=== PATIENT | male | born 1930 | race Caucasian/White ===

== ENCOUNTER 2019-10-13 19:28 | Observation (INO) | payer MEDICARE ==
[2019-10-13] MEDS ORDERED: Ondansetron 4 MG/2 ML SDV IVPUSH ONE (20:36)
[2019-10-13] MEDS ORDERED: Sodium Chloride 0.9% 1,000 ML IV SCH ×2 (20:45→23:15)
--- NOTE | 2019-10-13 21:16 | CRLCR ---
Indication: Cough Technique: Chest 1 view Comparison: February 07, 2015 Findings/Impression: Stable cardiomegaly. Normal vasculature. No new focal infiltrate, effusion pneumothorax. Surgical anchors in the left humeral head. Dictated by Hien Chambers MD @ Oct 13 2019 9:13PM Signed by Dr. Hien Chambers @ Oct 13 2019 9:13PM
--- NOTE | 2019-10-13 21:38 | EDM.PDOC ---
ED HPI GENERAL MEDICAL PROBLEM - General Chief Complaint: Gastrointestinal Problem Stated Complaint: VOMITING,DIARRHEA Time Seen by Provider: 10/13/19 20:10 Source of Information: Reports: Patient, Family History Limitations: Reports: No Limitations - History of Present Illness INITIAL COMMENTS - FREE TEXT/NARRATIVE: pt has been ill since thursday. he has been coughing alot and he did go to the clinic today and he was placed on amoxicillin for the chest congestion. He took one and he has vomited all afternoon and had diarrhea. There was no blood in the diarrhea. He did develop some upper abdomanal pain. He has a past history of a idiopathic pancreatitis so he was concerned about that. Onset: Gradual, Other ( started thursday. ) Duration: Hour(s): Location: Reports: Chest, Abdomen, Generalized Associated Symptoms: Reports: Cough, Diaphoresis, Loss of Appetite, Nausea/ Vomiting Generalized Pain Score (Numeric/FACES): 1 - Related Data Allergies Allergy/AdvReac Type Severity Reaction Status Date / Time No Known Allergies Allergy Verified 10/13/19 20:09 Home Meds: Home Meds Aspirin [Halfprin] 81 mg PO DAILY 07/08/13 [History] Halobetasol [Ultravate] 1 applicful TOP ASDIRECTED PRN 07/08/13 [History] Multivitamin with Minerals [Multiple Vitamin] 1 tab PO DAILY 07/08/13 [History] Tamsulosin [Flomax] 0.4 mg PO DAILY 07/08/13 [History] Calcipotriene [Dovonex 0.005% Crm] 1 applicful TOP BID 04/17/14 [History] Glucosamine/Chondr Graham A Sod [Osteo Bi-Flex Caplet] 2 tab PO DAILY 04/18/14 [ History] Folic Acid 1 mg PO DAILY 10/13/19 [History] Methotrexate Sodium [Methotrexate] 2.5 mg PO WEEKLY 10/13/19 [History] Past Medical History HEENT History: Reports: Impaired Vision Other Cardiovascular History: dyslipidemia; valve issue Respiratory History: Reports: Pneumonia, Recurrent, Sleep Apnea Gastrointestinal History: Reports: Colon Polyp Musculoskeletal History: Reports: Arthritis, Back Pain, Chronic Dermatologic History: Reports: Psoriasis - Infectious Disease History Infectious Disease History: Reports: Chicken Pox, Measles, Mumps - Past Surgical History HEENT Surgical History: Reports: Adenoidectomy, Tonsillectomy GI Surgical History: Reports: Colonoscopy, Hernia, Inguinal Social & Family History - Tobacco Use Smoking Status *Q: Former Smoker Used Tobacco, but Quit: Yes Month/Year Tobacco Last Used: quit 40 years ago - Caffeine Use Caffeine Use: Reports: Coffee Caffeine Use Comment: 3-4 cups of coffee per days - Alcohol Use Days Per Week of Alcohol Use: 1 Number of Drinks Per Day: 1 Total Drinks Per Week: 1 - Recreational Drug Use Recreational Drug Use: No ED ROS GENERAL - Review of Systems Review Of Systems: See Below Constitutional: Reports: Malaise, Weakness, Decreased Appetite HEENT: Reports: No Symptoms Respiratory: Reports: Cough Cardiovascular: Reports: No Symptoms Endocrine: Reports: No Symptoms GI/Abdominal: Reports: Diarrhea, Nausea, Vomiting : Reports: No Symptoms Musculoskeletal: Reports: No Symptoms Skin: Reports: No Symptoms Neurological: Reports: No Symptoms ED EXAM, GI/ABD - Physical Exam Exam: See Below Text/Narrative:: pt arrived with a history of a cough since thursday. Today he has been vomitng and having diarrhea.. Pt is chilling. Exam Limited By: Other General Appearance: Alert, Moderate Distress Ears: Normal TMs Nose: Normal Inspection Throat/Mouth: Normal Inspection Head: Atraumatic Neck: Normal Inspection Respiratory/Chest: No Respiratory Distress Cardiovascular: Regular Rate, Rhythm, Tachycardia GI/Abdominal Exam: Soft, Other (mild upper abdomanal tenderness. ) (Male) Exam: Deferred Rectal (Males) Exam: Deferred Back Exam: Normal Inspection Extremities: Normal Inspection Neurological: Alert, Oriented, Normal Cognition Psychiatric: Normal Affect Course - Vital Signs Last Recorded V/S: Last Vital Signs Temp 37.7 C 10/13/19 20:22 Pulse 91 10/13/19 20:29 Resp 16 10/13/19 20:11 BP 120/49 L 10/13/19 20:29 Pulse Ox 92 L 10/13/19 20:29 - Orders/Labs/Meds Orders: Active Orders 24 hr Category Date Time Status UA W/MICROSCOPIC [URIN] Urgent Lab 10/13/19 20:36 Ordered Sodium Chloride 0.9% [Normal Saline] 1,000 ml Med 10/13/19 20:45 Active IV ASDIRECTED Medication Orders Sodium Chloride (Normal Saline) 1,000 mls @ 999 mls/hr IV ASDIRECTED JUJU Last Admin: 10/13/19 20:46 Dose: 999 mls/hr Labs: Laboratory Tests 10/13/19 10/13/19 10/13/19 Range/Units 20:30 20:30 20:30 WBC 4.8 (4.5-11.0) K/uL RBC 3.93 L (4.30-5.90) M/uL Hgb 12.6 (12.0-15.0) g/dL Hct 39.7 L (40.0-54.0) % MCV 101 H (80-98) fL MCH 32 H (27-31) pg MCHC 32 (32-36) % Plt Count 129 L (150-400) K/uL Neut % (Auto) 94 H (36-66) % Lymph % (Auto) 2 L (24-44) % [place] % (Auto) 4 (2-6) % Eos % (Auto) 1 L (2-4) % Baso % (Auto) 0 (0-1) % Sodium 142 (140-148) mmol/L Potassium 4.2 (3.6-5.2) mmol/L Chloride 107 (100-108) mmol/L Carbon Dioxide 24 (21-32) mmol/L Anion Gap 10.6 (5.0-14.0) mmol/L BUN 31 H D (7-18) mg/dL Creatinine 1.1 D (0.8-1.3) mg/dL Est Cr Clr Drug Dosing 41.08 mL/min Estimated GFR (MDRD) > 60 (>60) Glucose 133 H (74-106) mg/dL Lactic Acid (0.4-2.0) mmol/L Calcium 8.2 L (8.5-10.1) mg/dL Total Bilirubin 0.9 (0.2-1.0) mg/dL AST 20 (15-37) U/L ALT 20 (12-78) U/L Alkaline Phosphatase 37 L (46-116) U/L Total Protein 6.5 (6.4-8.2) g/dL Albumin 3.7 (3.4-5.0) g/dL Globulin 2.8 (2.3-3.5) g/dL Albumin/Globulin Ratio 1.3 (1.2-2.2) Amylase 28 (25-115) U/L 10/13/19 Range/Units 20:30 WBC (4.5-11.0) K/uL RBC (4.30-5.90) M/uL Hgb (12.0-15.0) g/dL Hct (40.0-54.0) % MCV (80-98) fL MCH (27-31) pg MCHC (32-36) % Plt Count (150-400) K/uL Neut % (Auto) (36-66) % Lymph % (Auto) (24-44) % [place] % (Auto) (2-6) % Eos % (Auto) (2-4) % Baso % (Auto) (0-1) % Sodium (140-148) mmol/L Potassium (3.6-5.2) mmol/L Chloride (100-108) mmol/L Carbon Dioxide (21-32) mmol/L Anion Gap (5.0-14.0) mmol/L BUN (7-18) mg/dL Creatinine (0.8-1.3) mg/dL Est Cr Clr Drug Dosing mL/min Estimated GFR (MDRD) (>60) Glucose (74-106) mg/dL Lactic Acid 2.0 (0.4-2.0) mmol/L Calcium (8.5-10.1) mg/dL Total Bilirubin (0.2-1.0) mg/dL AST (15-37) U/L ALT (12-78) U/L Alkaline Phosphatase (46-116) U/L Total Protein (6.4-8.2) g/dL Albumin (3.4-5.0) g/dL Globulin (2.3-3.5) g/dL Albumin/Globulin Ratio (1.2-2.2) Amylase (25-115) U/L Meds: Medications Generic Name Dose Route Start Last Admin Trade Name Freq PRN Reason Stop Dose Admin Sodium Chloride 1,000 mls @ 999 mls/hr 10/13/19 20:45 10/13/19 20:46 Normal Saline IV 999 mls/hr ASDIRECTED JUJU Administration Discontinued Medications Generic Name Dose Route Start Last Admin Trade Name Freq PRN Reason Stop Dose Admin Ondansetron HCl 4 mg 10/13/19 20:36 10/13/19 20:46 Zofran IVPUSH 10/13/19 20:37 4 mg ONETIME ONE Administration - Re-Assessments/Exams Free Text/Narrative Re-Assessment/Exam: 10/13/19 21:40 pt had a neg influ a and b Pt had a low wbc looking like a viral illness. His chest xray looked good. Pt is dehydrated. Departure - Departure Time of Disposition: 21:42 Disposition: Admitted As Inpatient 66 Condition: Fair Clinical Impression: Dehydration, Viral illness - Discharge Information Referrals: Bob Nunes MD [Primary Care Provider] - Care Plan Goals: admit to [facility] Sepsis Event Note - Evaluation Sepsis Screening Result: No Definite Risk - Focused Exam Vital Signs: Vital Signs Temp Pulse Resp BP Pulse Ox 10/13/19 20:29 91 120/49 L 92 L 10/13/19 20:22 37.7 C 10/13/19 20:11 109 H 16 115/67 92 L 10/13/19 20:08 109 H 16 115/67 92 L Date Exam was Performed: 10/13/19 Time Exam was Performed: 21:33 - My Orders Last 24 Hours: My Active Orders 10/13/19 20:36 UA W/MICROSCOPIC [URIN] Urgent 10/13/19 20:45 Sodium Chloride 0.9% [Normal Saline] 1,000 ml IV ASDIRECTED - Assessment/Plan Last 24 Hours: My Active Orders 10/13/19 20:36 UA W/MICROSCOPIC [URIN] Urgent 10/13/19 20:45 Sodium Chloride 0.9% [Normal Saline] 1,000 ml IV ASDIRECTED
[2019-10-13] MEDS ORDERED: cefTRIAXone 1 GM in Sodium Chloride 0.9% 50 ML IV SCH (23:00)
[2019-10-13] MEDS ORDERED: Ondansetron 4 MG Tab.DIS PO PRN (23:36)
[2019-10-13] MEDS ORDERED: Pantoprazole 40 MG Vial IV SCH (23:36)
[2019-10-13] MEDS ORDERED: Albuterol 0.083% 2.5 MG/3 ML Neb Soln NEB PRN (23:36)
[2019-10-13] MEDS ORDERED: Docusate Sodium 100 MG Cap PO PRN (23:36)
[2019-10-13] MEDS ORDERED: Albuterol/Ipratropium 3.0-0.5 MG/3 ML Neb Soln NEB PRN (23:36)
[2019-10-13] MEDS ORDERED: oxyCODONE 5 MG Tab PO PRN (23:36)
[2019-10-13] MEDS ORDERED: Acetaminophen 325 MG Tab PO PRN (23:36)
[2019-10-13] MEDS ORDERED: Ondansetron 4 MG/2 ML SDV IV PRN (23:36)
--- NOTE | 2019-10-14 00:36 | PCM.HP.2 ---
H&P History of Present Illness - General Date of Service: 10/13/19 Admit Problem/Dx: Admission Diagnosis/Problem Admission Diagnosis/Problem Dehydration Source of Information: Patient, Family (Two Daughters at bedside), Provider, RN History Limitations: Reports: No Limitations - History of Present Illness Initial Comments - Free Text/Narative: Source of Information: Reports: Patient, Family History Limitations: Reports: No Limitations - History of Present Illness INITIAL COMMENTS - FREE TEXT/NARRATIVE: Family reports Mr. Cook has been ill since Thursday. He has been coughing a lot and he did go to the clinic today and he was placed on amoxicillin for the chest congestion. He took one and he has vomited all afternoon and had diarrhea. There was no blood in the diarrhea. He did develop some upper abdominal pain. He has a past history of a idiopathic pancreatitis so he was concerned about that. Onset: Gradual, Other ( started Thursday. ) Duration: Hour(s): Location: Reports: Chest, Abdomen, Generalized Associated Symptoms: Reports: Cough, Diaphoresis, Loss of Appetite, Nausea/ Vomiting Onset of Symptoms: Reports: Gradual Symptom Onset Date: 10/11/19 Duration of Symptoms: Reports: Day(s):, Getting Worse Location: Reports: Chest (respiratory illness since Thursday.), Generalized Severity: Moderate Improves with: Reports: None Worsens with: Reports: None Context: Reports: Other (illness x 3 days. fever, chills, nausea, vomiting, diarrhea.) Associated Symptoms: Reports: Cough, Fever/Chills, Loss of Appetite, Nausea/ Vomiting (vomiting til had dry heaves for two hours.), Weakness Generalized Pain Score (Numeric/FACES): 1 - Related Data Allergies/Adverse Reactions: Allergies Allergy/AdvReac Type Severity Reaction Status Date / Time No Known Allergies Allergy Verified 10/13/19 20:09 Home Medications: Home Meds Aspirin [Halfprin] 81 mg PO ASDIRECTED 07/08/13 [History] Halobetasol [Ultravate] 1 applicful TOP ASDIRECTED PRN 07/08/13 [History] Multivitamin with Minerals [Multiple Vitamin] 1 tab PO DAILY 07/08/13 [History] Tamsulosin [Flomax] 0.4 mg PO DAILY 07/08/13 [History] Calcipotriene [Dovonex 0.005% Crm] 1 applicful TOP BID 04/17/14 [History] Glucosamine/Chondr Graham A Sod [Osteo Bi-Flex Caplet] 2 tab PO DAILY 04/18/14 [ History] Folic Acid 1 mg PO DAILY 10/13/19 [History] Furosemide 20 mg PO DAILY 10/13/19 [History] Losartan Potassium 12.5 mg PO DAILY 10/13/19 [History] Methotrexate Sodium [Methotrexate] 2.5 mg PO WEEKLY 10/13/19 [History] atorvaSTATin [Lipitor] 5 mg PO BEDTIME 10/13/19 [History] Amoxicillin 500 mg PO BID 10/14/19 [History] Past Medical History HEENT History: Reports: Impaired Vision Cardiovascular History: Reports: Other (See Below) (valve heart disease) Other Cardiovascular History: dyslipidemia; valve issue Respiratory History: Reports: Pneumonia, Recurrent, Sleep Apnea Gastrointestinal History: Reports: Colon Polyp Musculoskeletal History: Reports: Arthritis, Back Pain, Chronic Dermatologic History: Reports: Psoriasis - Infectious Disease History Infectious Disease History: Reports: Chicken Pox, Measles, Mumps - Past Surgical History HEENT Surgical History: Reports: Adenoidectomy, Tonsillectomy GI Surgical History: Reports: Colonoscopy, Hernia, Inguinal Social & Family History - Tobacco Use Smoking Status *Q: Former Smoker Used Tobacco, but Quit: Yes Month/Year Tobacco Last Used: quit 40 years ago - Caffeine Use Caffeine Use: Reports: Coffee Caffeine Use Comment: 3-4 cups of coffee per days - Alcohol Use Days Per Week of Alcohol Use: 1 Number of Drinks Per Day: 1 Total Drinks Per Week: 1 - Recreational Drug Use Recreational Drug Use: No - Living Situation & Occupation Living situation: Reports: , Alone Occupation: Retired (lives in apartment in [place], [place]. He is independent, drives himself and is control of his life. He has two Daughters that live in [facility] who keep close watch on Jovan.) H&P Review of Systems - Review of Systems: Review Of Systems: See Below General: Reports: Fever, Chills, Malaise, Weakness, Fatigue, Decreased Appetite HEENT: Reports: Glasses Pulmonary: Reports: Shortness of Breath, Cough, Sputum (yellow phlem) Cardiovascular: Reports: Palpitations, Other (15 years ago - vein stripping.) Gastrointestinal: Reports: Diarrhea, Decreased Appetite, Nausea, Vomiting ( reports two hours of dry heaves today - which brought him to the ER.), Other ( 15 years ago colon resection for polyps.) Genitourinary: Reports: No Symptoms Musculoskeletal: Reports: Other (hx of left rotator cuff repair, knee replacement, arthritis in hips, generalized arthritis.) Skin: Reports: Other (psoriasis) Psychiatric: Reports: No Symptoms Neurological: Reports: No Symptoms Hematologic/Lymphatic: Reports: No Symptoms Exam - Exam Exam: See Below - Vital Signs Vital Signs: Last Vital Signs Temp 37.5 C 10/13/19 21:50 Pulse 110 H 10/13/19 21:30 Resp 16 10/13/19 20:11 BP 90/57 L 10/13/19 21:30 Pulse Ox 94 L 10/13/19 21:30 Weight: 81.828 kg - Exam Quality Assessment: DVT Prophylaxis General: Alert, Oriented, Cooperative HEENT: PERRLA, Conjunctiva Clear, EACs Clear, EOMI, Mucosa Moist & [place], Nares Patent Neck: Supple, Trachea Midline Lungs: Clear to Auscultation, Normal Respiratory Effort Cardiovascular: Irregular Rhythm, Tachycardia, Other (murmur present) GI/Abdominal Exam: Normal Bowel Sounds, Soft, Non-Tender, No Organomegaly, No Distention, No Abnormal Bruit, No Mass, Pelvis Stable (Male) Exam: Deferred Rectal (Males) Exam: Deferred Back Exam: Normal Inspection, Full Range of Motion Extremities: Normal Inspection, Normal Range of Motion, Non-Tender, No Pedal Edema, Normal Capillary Refill Skin: Warm, Dry, Intact Neurological: Reflexes Equal Bilateral, Strength Equal Bilateral Neuro Extensive - Mental Status: Alert, Oriented x3, Normal Mood/Affect, Normal Cognition Psychiatric: Alert, Normal Affect, Normal Mood - Patient Data Lab Results Last 24 hrs: Laboratory Results - last 24 hr 10/13/19 10/13/19 10/13/19 Range/Units 20:30 20:30 20:30 WBC 4.8 (4.5-11.0) K/uL RBC 3.93 L (4.30-5.90) M/uL Hgb 12.6 (12.0-15.0) g/dL Hct 39.7 L (40.0-54.0) % MCV 101 H (80-98) fL MCH 32 H (27-31) pg MCHC 32 (32-36) % Plt Count 129 L (150-400) K/uL Neut % (Auto) 94 H (36-66) % Lymph % (Auto) 2 L (24-44) % [place] % (Auto) 4 (2-6) % Eos % (Auto) 1 L (2-4) % Baso % (Auto) 0 (0-1) % Sodium 142 (140-148) mmol/L Potassium 4.2 (3.6-5.2) mmol/L Chloride 107 (100-108) mmol/L Carbon Dioxide 24 (21-32) mmol/L Anion Gap 10.6 (5.0-14.0) mmol/L BUN 31 H D (7-18) mg/dL Creatinine 1.1 D (0.8-1.3) mg/dL Est Cr Clr Drug Dosing 41.08 mL/min Estimated GFR (MDRD) > 60 (>60) Glucose 133 H (74-106) mg/dL Lactic Acid (0.4-2.0) mmol/L Calcium 8.2 L (8.5-10.1) mg/dL Total Bilirubin 0.9 (0.2-1.0) mg/dL AST 20 (15-37) U/L ALT 20 (12-78) U/L Alkaline Phosphatase 37 L (46-116) U/L Total Protein 6.5 (6.4-8.2) g/dL Albumin 3.7 (3.4-5.0) g/dL Globulin 2.8 (2.3-3.5) g/dL Albumin/Globulin Ratio 1.3 (1.2-2.2) Amylase 28 (25-115) U/L 10/13/19 Range/Units 20:30 WBC (4.5-11.0) K/uL RBC (4.30-5.90) M/uL Hgb (12.0-15.0) g/dL Hct (40.0-54.0) % MCV (80-98) fL MCH (27-31) pg MCHC (32-36) % Plt Count (150-400) K/uL Neut % (Auto) (36-66) % Lymph % (Auto) (24-44) % [place] % (Auto) (2-6) % Eos % (Auto) (2-4) % Baso % (Auto) (0-1) % Sodium (140-148) mmol/L Potassium (3.6-5.2) mmol/L Chloride (100-108) mmol/L Carbon Dioxide (21-32) mmol/L Anion Gap (5.0-14.0) mmol/L BUN (7-18) mg/dL Creatinine (0.8-1.3) mg/dL Est Cr Clr Drug Dosing mL/min Estimated GFR (MDRD) (>60) Glucose (74-106) mg/dL Lactic Acid 2.0 (0.4-2.0) mmol/L Calcium (8.5-10.1) mg/dL Total Bilirubin (0.2-1.0) mg/dL AST (15-37) U/L ALT (12-78) U/L Alkaline Phosphatase (46-116) U/L Total Protein (6.4-8.2) g/dL Albumin (3.4-5.0) g/dL Globulin (2.3-3.5) g/dL Albumin/Globulin Ratio (1.2-2.2) Amylase (25-115) U/L Result Diagrams: 10/13/19 20:30 10/13/19 20:30 Krzysztof Results Last 24 hrs: Microbiology 10/13/19 20:27 Influenza Type A Antigen Screen - Final Nasal Aspirate, Left NEGATIVE INFLUENZA A VIRUS AG REFERENCE RANGE: NEGATIVE Influenza Type B Antigen Screen - Final NEGATIVE INFLUENZA B VIRUS AG REFERENCE RANGE: NEGATIVE Sepsis Event Note - Evaluation Sepsis Screening Result: No Definite Risk - Focused Exam Vital Signs: Vital Signs Temp Pulse Resp BP Pulse Ox 10/13/19 21:50 37.5 C 10/13/19 21:30 110 H 90/57 L 94 L 10/13/19 20:59 89 107/55 L 92 L 10/13/19 20:29 91 120/49 L 92 L 10/13/19 20:22 37.7 C 10/13/19 20:11 109 H 16 115/67 92 L 10/13/19 20:08 109 H 16 115/67 92 L Date Exam was Performed: 10/14/19 Time Exam was Performed: 01:31 - Problem List (1) Dehydration SNOMED Code(s): 72624712 ICD Code: E86.0 - DEHYDRATION Status: Acute Priority: High Current Visit: Yes (2) Upper respiratory infection SNOMED Code(s): 83935378 ICD Code: J06.9 - ACUTE UPPER RESPIRATORY INFECTION, UNSPECIFIED Status: Acute Priority: High Current Visit: Yes Qualifiers: Airway obstruction: without obstruction (3) Irregular heart beats SNOMED Code(s): 412257480 ICD Code: I49.9 - CARDIAC ARRHYTHMIA, UNSPECIFIED Status: Acute Priority : High Current Visit: Yes Problem List Initiated/Reviewed/Updated: Yes Orders Last 24hrs: Active Orders 24 hr Category Date Time Status Cardiac Monitoring [RC] .As Directed Care 10/13/19 23:03 Active Intake and Output [RC] QSHIFT Care 10/13/19 23:36 Active Notify Provider Vital Signs [RC] ASDIRECTED Care 10/13/19 23:36 Active Oxygen Therapy [RC] PRN Care 10/13/19 23:36 Active Pulse Oximetry [RC] CONTINUOUS Care 10/13/19 23:36 Active RT Aerosol Therapy [RC] ASDIRECTED Care 10/13/19 23:36 Active Up ad [place] [RC] ASDIRECTED Care 10/13/19 23:36 Active VTE/DVT Education [RC] Per Unit Routine Care 10/13/19 23:36 Active Vital Signs [RC] Q4H Care 10/13/19 23:36 Active Consult to Spiritual Care [CONS] Routine Cons 10/13/19 23:36 Active Regular Diet [DIET] Diet 10/13/19 Breakfast Active BASIC METABOLIC PANEL,BMP [CHEM] AM Lab 10/14/19 05:11 Ordered CBC WITH AUTO DIFF [HEME] AM Lab 10/14/19 05:11 Ordered LACTIC ACID [CHEM] Routine Lab 10/14/19 01:10 Ordered UA W/MICROSCOPIC [URIN] Urgent Lab 10/13/19 20:36 Ordered Acetaminophen [Tylenol] Med 10/13/19 23:36 Active 650 mg PO Q4H PRN Albuterol [Proventil Neb Soln] Med 10/13/19 23:36 Active 2.5 mg NEB Q4H PRN Albuterol/Ipratropium [DuoNeb 3.0-0.5 MG/3 ML] Med 10/13/19 23:36 Active 3 ml NEB QID PRN Azithromycin [Zithromax] 500 mg Med 10/14/19 00:00 Active Sodium Chloride 0.9% [Normal Saline] 250 ml IV Q24H Docusate Sodium [Colace] Med 10/13/19 23:36 Active 100 mg PO BID PRN Enoxaparin [Lovenox] Med 10/14/19 09:00 Active 40 mg SUBCUT DAILY Folic Acid Med 10/14/19 09:00 Active 1 mg PO DAILY Furosemide [Lasix] Med 10/14/19 09:00 Active 20 mg PO DAILY Losartan [Cozaar] Med 10/14/19 09:00 Active 12.5 mg PO DAILY Ondansetron [Zofran ODT] Med 10/13/19 23:36 Active 4 mg PO Q6H PRN Ondansetron [Zofran] Med 10/13/19 23:36 Active 4 mg IV Q4H PRN Pantoprazole [ProTONIX IV] Med 10/13/19 23:36 Active 40 mg IV BEDTIME Sodium Chloride 0.9% [Normal Saline] 1,000 ml Med 10/13/19 23:15 Active IV ASDIRECTED Tamsulosin [Flomax] Med 10/14/19 09:00 Active 0.4 mg PO DAILY atorvaSTATin [Lipitor] Med 10/14/19 21:00 Active 5 mg PO BEDTIME cefTRIAXone [Rocephin] 1 gm Med 10/13/19 23:00 Active Sodium Chloride 0.9% [Normal Saline] 50 ml IV Q24H oxyCODONE Med 10/13/19 23:36 Active 5 mg PO Q4H PRN Resuscitation Status Routine Resus Stat 10/13/19 23:13 Ordered EKG 12 Lead [EK] Urgent Ther 10/13/19 23:02 Ordered Medication Orders Acetaminophen (Tylenol) 650 mg PO Q4H PRN PRN Reason: Pain (Mild 1-3)/fever Albuterol (Proventil Neb Soln) 2.5 mg NEB Q4H PRN PRN Reason: Shortness Of Breath/wheezing Albuterol/Ipratropium (Duoneb 3.0-0.5 Mg/3 Ml) 3 ml NEB QID PRN PRN Reason: Shortness Of Breath/wheezing Atorvastatin Calcium (Lipitor) 5 mg PO BEDTIME JUJU Docusate Sodium (Colace) 100 mg PO BID PRN PRN Reason: Constipation Enoxaparin Sodium (Lovenox) 40 mg SUBCUT DAILY JUJU Folic Acid (Folic Acid) 1 mg PO DAILY [facility] Furosemide (Lasix) 20 mg PO DAILY [facility] Sodium Chloride (Normal Saline) 1,000 mls @ 125 mls/hr IV ASDIRECTED [facility] Last Admin: 10/13/19 23:53 Dose: 125 mls/hr Azithromycin 500 mg/ Sodium (Chloride) 250 mls @ 250 mls/hr IV Q24H [facility] Ceftriaxone Sodium 1 gm/ (Sodium Chloride) 50 mls @ 100 mls/hr IV Q24H [facility] Last Admin: 10/14/19 00:31 Dose: 100 mls/hr Losartan Potassium (Cozaar) 12.5 mg PO DAILY [facility] Ondansetron HCl (Zofran Odt) 4 mg PO Q6H PRN PRN Reason: Nausea able to take PO Ondansetron HCl (Zofran) 4 mg IV Q4H PRN PRN Reason: Nausea/Vomiting Oxycodone HCl (Oxycodone) 5 mg PO Q4H PRN PRN Reason: Pain (moderate 4-6) Pantoprazole Sodium (Protonix Iv) 40 mg IV BEDTIME [facility] Tamsulosin HCl (Flomax) 0.4 mg PO DAILY [facility] Assessment/Plan Comment:: ASSESSMENT AND PLAN OF CARE: Dehydration with nausea, vomiting, diarrhea. INITIAL COMMENTS - FREE TEXT/NARRATIVE: Family reports Mr. Cook has been ill since Thursday. He has been coughing a lot and he did go to the clinic today and he was placed on amoxicillin for the chest congestion. He took one and he has vomited all afternoon and had diarrhea. There was no blood in the diarrhea. He did develop some upper abdominal pain. He has a past history of a idiopathic pancreatitis so he was concerned about that. Onset: Gradual, Other ( started Thursday. ) ER work-up labs normal, lactic acid at 2.0 will plan to repeat in 4 hours. chest x-ray no acute changes per radiology report. will plan to admit to hospital for further care and treatment. Daughters and Mr. Cook agree with plan of care. Dehydration with nausea, vomiting and diarrhea since Thursday (3 days ago) -IV fluids for hydration - give one liter in ER prior to transfer to 2nd floor- IV Normal Saline 125ml/hr -Medication for nausea and vomiting -Protonix 40 mg IV every 24 hours -am labs: cbc, bmp Respiratory illness -IV Rocephin 1 gram every 24 hours -IV Zithromax 500 mg every 24 hours -Nebulizer treatment Albuterol and Duo nebs ordered -blood cultures x 2 pending -Lactic acid 2.0, will repeat at 0100 -am labs CBC Cardia arrhythmia - telemetry show SR with intermittent A-Fib. heart rate from 120's to 40's. Mr. Cook denies any chest pain, shortness of breath, denies pain in jaw, arms or shoulder. Discussed with Mr. Cook and his two Daughters will continue to monitor - if any changes or if he stay in A-fib will need to transfer to ICU bed as this hospital has no ICU beds. Patient and Family are in agreement with plan of care. would like to stay here if possible. Consult to Internal Medicine. -Metoprolol 12.5 mg po every 6 hours -Cardiac tele -EKG -Troponin MAINTENANCE ISSUES -DVT Prophylaxis - Levonox 30 mg subcut -GI prophylaxis- Protonix as above -Harding catheter not indicated -Nutrition regular diet -consult to Spiritual for daily prayers. CODE STATUS DNR/DNI ADMISSION This patient will be admitted to observation status, expect no more than one night hospital stay for evaluation and management of problems outline above. DISPOSITION anticipate discharge to home after the hospital stay PRIMARY CARE PROVIDER Dr. Bigg Nunes HOSPITALIST Dr. Diaz - Mortality Measure Prognosis:: Good
[2019-10-14] MEDS ORDERED: Metoprolol Tartrate 25 MG Tab PO SCH ×3 (01:00→11:00)
[2019-10-14] MEDS ORDERED: Sodium Chloride 0.9% 500 ML IV ONE (04:39)
[2019-10-14] MEDS ORDERED: Enoxaparin 40 MG/0.4 ML Syringe SUBCUT SCH (09:00)
[2019-10-14] MEDS: Furosemide 20 MG **PTOM PO SCH (11:40)
[2019-10-14] MEDS: Losartan 25 MG **PTOM PO SCH (11:40)
--- NOTE | 2019-10-14 13:25 | PCM.PN ---
- General Info Date of Service: 10/14/19 Subjective Update: RevDariusz Cook is an 89-year-old gentleman who was admitted to observation status last night with nausea vomiting and weakness. He reports not feeling well over the past 2 to 3 days with cough and some shortness of breath. On the day of admission he was seen and evaluated in the clinic and started on Augmentin. He took the Augmentin early afternoon and by 2 hours later developed severe nausea , vomiting, weakness, and diarrhea. He presented to the emergency department. Chest x-ray showed no obvious infiltrates and white blood cell count was found to be within normal range. He was admitted to observation status and given IV fluids for hydration. After hospitalization telemetry monitoring did document paroxysmal atrial fibrillation. He was given low-dose beta-mecca therapy and the frequency of atrial fibrillation decreased but did not totally resolve. This morning he has had hypotension but denies significant symptoms of weakness or lightheadedness. Nausea vomiting and diarrhea have resolved but he was able to tolerate a regular diet. Pressure has trended low this morning, beta-mecca , ARB, and diuretic have been held. Functional Status: Reports: Tolerating Diet, Urinating - Review of Systems General: Reports: Weakness. Denies: Fever, Chills Pulmonary: Reports: Shortness of Breath, Cough. Denies: Pleuritic Chest Pain, Sputum, Hemoptysis, Wheezing Cardiovascular: Reports: Dyspnea on Exertion. Denies: Chest Pain, Palpitations , Orthopnea, PND, Edema, Lightheadedness Gastrointestinal: Reports: No Symptoms - Patient Data Vitals - Most Recent: Last Vital Signs Temp 96.9 F 10/14/19 10:44 Pulse 69 10/14/19 10:44 Resp 16 10/14/19 10:44 BP 92/45 L 10/14/19 11:29 Pulse Ox 97 10/14/19 10:44 Weight - Most Recent: 180 lb 6.4 oz I&O - Last 24 Hours: Intake & Output 10/13/19 10/14/19 10/14/19 22:59 06:59 14:59 Intake Total 1594 100 Output Total 75 Balance 1519 100 Lab Results Last 24 Hours: Laboratory Results - last 24 hr 10/13/19 10/13/19 10/13/19 Range/Units 20:30 20:30 20:30 WBC 4.8 (4.5-11.0) K/uL RBC 3.93 L (4.30-5.90) M/uL Hgb 12.6 (12.0-15.0) g/dL Hct 39.7 L (40.0-54.0) % MCV 101 H (80-98) fL MCH 32 H (27-31) pg MCHC 32 (32-36) % Plt Count 129 L (150-400) K/uL Neut % (Auto) 94 H (36-66) % Lymph % (Auto) 2 L (24-44) % Starr % (Auto) 4 (2-6) % Eos % (Auto) 1 L (2-4) % Baso % (Auto) 0 (0-1) % Sodium 142 (140-148) mmol/L Potassium 4.2 (3.6-5.2) mmol/L Chloride 107 (100-108) mmol/L Carbon Dioxide 24 (21-32) mmol/L Anion Gap 10.6 (5.0-14.0) mmol/L BUN 31 H D (7-18) mg/dL Creatinine 1.1 D (0.8-1.3) mg/dL Est Cr Clr Drug Dosing 41.08 mL/min Estimated GFR (MDRD) > 60 (>60) Glucose 133 H (74-106) mg/dL Lactic Acid (0.4-2.0) mmol/L Calcium 8.2 L (8.5-10.1) mg/dL Magnesium (1.8-2.4) mg/dL Total Bilirubin 0.9 (0.2-1.0) mg/dL AST 20 (15-37) U/L ALT 20 (12-78) U/L Alkaline Phosphatase 37 L (46-116) U/L Troponin I (0.000-0.056) ng/mL Total Protein 6.5 (6.4-8.2) g/dL Albumin 3.7 (3.4-5.0) g/dL Globulin 2.8 (2.3-3.5) g/dL Albumin/Globulin Ratio 1.3 (1.2-2.2) Amylase 28 (25-115) U/L Urine Color (YELLOW) Urine Appearance (CLEAR) Urine pH (5.0-8.0) Ur Specific [place] (1.008-1.030) Urine Protein (NEGATIVE) mg/dL Urine Glucose (UA) (NEGATIVE) mg/dL Urine Ketones (NEGATIVE) mg/dL Urine Occult Blood (NEGATIVE) Urine Nitrite (NEGATIVE) Urine Bilirubin (NEGATIVE) Urine Urobilinogen (0.2-1.0) EU/dL Ur Leukocyte Esterase (NEGATIVE) Urine RBC (0-5) Urine WBC (0-5) Ur Epithelial Cells Amorphous Sediment Urine Bacteria Urine Mucus 10/13/19 10/14/19 10/14/19 Range/Units 20:30 00:44 01:10 WBC (4.5-11.0) K/uL RBC (4.30-5.90) M/uL Hgb (12.0-15.0) g/dL Hct (40.0-54.0) % MCV (80-98) fL MCH (27-31) pg MCHC (32-36) % Plt Count (150-400) K/uL Neut % (Auto) (36-66) % Lymph % (Auto) (24-44) % Starr % (Auto) (2-6) % Eos % (Auto) (2-4) % Baso % (Auto) (0-1) % Sodium (140-148) mmol/L Potassium (3.6-5.2) mmol/L Chloride (100-108) mmol/L Carbon Dioxide (21-32) mmol/L Anion Gap (5.0-14.0) mmol/L BUN (7-18) mg/dL Creatinine (0.8-1.3) mg/dL Est Cr Clr Drug Dosing mL/min Estimated GFR (MDRD) (>60) Glucose (74-106) mg/dL Lactic Acid 2.0 1.7 (0.4-2.0) mmol/L Calcium (8.5-10.1) mg/dL Magnesium 1.8 (1.8-2.4) mg/dL Total Bilirubin (0.2-1.0) mg/dL AST (15-37) U/L ALT (12-78) U/L Alkaline Phosphatase (46-116) U/L Troponin I (0.000-0.056) ng/mL Total Protein (6.4-8.2) g/dL Albumin (3.4-5.0) g/dL Globulin (2.3-3.5) g/dL Albumin/Globulin Ratio (1.2-2.2) Amylase (25-115) U/L Urine Color (YELLOW) Urine Appearance (CLEAR) Urine pH (5.0-8.0) Ur Specific [place] (1.008-1.030) Urine Protein (NEGATIVE) mg/dL Urine Glucose (UA) (NEGATIVE) mg/dL Urine Ketones (NEGATIVE) mg/dL Urine Occult Blood (NEGATIVE) Urine Nitrite (NEGATIVE) Urine Bilirubin (NEGATIVE) Urine Urobilinogen (0.2-1.0) EU/dL Ur Leukocyte Esterase (NEGATIVE) Urine RBC (0-5) Urine WBC (0-5) Ur Epithelial Cells Amorphous Sediment Urine Bacteria Urine Mucus 10/14/19 10/14/19 10/14/19 Range/Units 01:10 04:00 04:10 WBC 8.8 (4.5-11.0) K/uL RBC 3.40 L (4.30-5.90) M/uL Hgb 11.2 L (12.0-15.0) g/dL Hct 34.7 L (40.0-54.0) % MCV 102 H (80-98) fL MCH 33 H (27-31) pg MCHC 32 (32-36) % Plt Count 131 L (150-400) K/uL Neut % (Auto) 92 H (36-66) % Lymph % (Auto) 2 L (24-44) % Starr % (Auto) 6 (2-6) % Eos % (Auto) 0 L (2-4) % Baso % (Auto) 0 (0-1) % Sodium (140-148) mmol/L Potassium (3.6-5.2) mmol/L Chloride (100-108) mmol/L Carbon Dioxide (21-32) mmol/L Anion Gap (5.0-14.0) mmol/L BUN (7-18) mg/dL Creatinine (0.8-1.3) mg/dL Est Cr Clr Drug Dosing mL/min Estimated GFR (MDRD) (>60) Glucose (74-106) mg/dL Lactic Acid (0.4-2.0) mmol/L Calcium (8.5-10.1) mg/dL Magnesium (1.8-2.4) mg/dL Total Bilirubin (0.2-1.0) mg/dL AST (15-37) U/L ALT (12-78) U/L Alkaline Phosphatase (46-116) U/L Troponin I 0.017 (0.000-0.056) ng/mL Total Protein (6.4-8.2) g/dL Albumin (3.4-5.0) g/dL Globulin (2.3-3.5) g/dL Albumin/Globulin Ratio (1.2-2.2) Amylase (25-115) U/L Urine Color Yellow (YELLOW) Urine Appearance Clear (CLEAR) Urine pH 5.5 (5.0-8.0) Ur Specific [place] >= 1.030 (1.008-1.030) Urine Protein 30 H (NEGATIVE) mg/dL Urine Glucose (UA) Normal (NEGATIVE) mg/dL Urine Ketones 40 H (NEGATIVE) mg/dL Urine Occult Blood Negative (NEGATIVE) Urine Nitrite Negative (NEGATIVE) Urine Bilirubin Small (NEGATIVE) Urine Urobilinogen 0.2 (0.2-1.0) EU/dL Ur Leukocyte Esterase Negative (NEGATIVE) Urine RBC 0-5 (0-5) Urine WBC 0-5 (0-5) Ur Epithelial Cells Few Amorphous Sediment Not seen Urine Bacteria Few Urine Mucus Not seen 10/14/19 Range/Units 04:10 WBC (4.5-11.0) K/uL RBC (4.30-5.90) M/uL Hgb (12.0-15.0) g/dL Hct (40.0-54.0) % MCV (80-98) fL MCH (27-31) pg MCHC (32-36) % Plt Count (150-400) K/uL Neut % (Auto) (36-66) % Lymph % (Auto) (24-44) % Starr % (Auto) (2-6) % Eos % (Auto) (2-4) % Baso % (Auto) (0-1) % Sodium 142 (140-148) mmol/L Potassium 4.3 (3.6-5.2) mmol/L Chloride 109 H (100-108) mmol/L Carbon Dioxide 23 (21-32) mmol/L Anion Gap 14.3 H (5.0-14.0) mmol/L BUN 33 H (7-18) mg/dL Creatinine 1.2 (0.8-1.3) mg/dL Est Cr Clr Drug Dosing 37.66 mL/min Estimated GFR (MDRD) 57 L (>60) Glucose 135 H (74-106) mg/dL Lactic Acid (0.4-2.0) mmol/L Calcium 7.5 L (8.5-10.1) mg/dL Magnesium (1.8-2.4) mg/dL Total Bilirubin (0.2-1.0) mg/dL AST (15-37) U/L ALT (12-78) U/L Alkaline Phosphatase (46-116) U/L Troponin I (0.000-0.056) ng/mL Total Protein (6.4-8.2) g/dL Albumin (3.4-5.0) g/dL Globulin (2.3-3.5) g/dL Albumin/Globulin Ratio (1.2-2.2) Amylase (25-115) U/L Urine Color (YELLOW) Urine Appearance (CLEAR) Urine pH (5.0-8.0) Ur Specific [place] (1.008-1.030) Urine Protein (NEGATIVE) mg/dL Urine Glucose (UA) (NEGATIVE) mg/dL Urine Ketones (NEGATIVE) mg/dL Urine Occult Blood (NEGATIVE) Urine Nitrite (NEGATIVE) Urine Bilirubin (NEGATIVE) Urine Urobilinogen (0.2-1.0) EU/dL Ur Leukocyte Esterase (NEGATIVE) Urine RBC (0-5) Urine WBC (0-5) Ur Epithelial Cells Amorphous Sediment Urine Bacteria Urine Mucus Krzysztof Results Last 24 Hours: Microbiology 10/13/19 20:27 Influenza Type A Antigen Screen - Final Nasal Aspirate, Left NEGATIVE INFLUENZA A VIRUS AG REFERENCE RANGE: NEGATIVE Influenza Type B Antigen Screen - Final NEGATIVE INFLUENZA B VIRUS AG REFERENCE RANGE: NEGATIVE Med Orders - Current: Current Medications Acetaminophen (Tylenol) 650 mg PO Q4H PRN PRN Reason: Pain (Mild 1-3)/fever Last Admin: 10/14/19 01:02 Dose: 650 mg Albuterol (Proventil Neb Soln) 2.5 mg NEB Q4H PRN PRN Reason: Shortness Of Breath/wheezing Albuterol/Ipratropium (Duoneb 3.0-0.5 Mg/3 Ml) 3 ml NEB QID PRN PRN Reason: Shortness Of Breath/wheezing Atorvastatin Calcium (Lipitor) 5 mg PO BEDTIME [facility] Docusate Sodium (Colace) 100 mg PO BID PRN PRN Reason: Constipation Enoxaparin Sodium (Lovenox) 40 mg SUBCUT DAILY [facility] Folic Acid (Folic Acid) 1 mg PO DAILY [facility] Furosemide (Lasix) 20 mg PO DAILY [facility] Last Admin: 10/14/19 11:40 Dose: Not Given Lactobacillus Rhamnosus (Culturelle) 1 cap PO BID [facility] Losartan Potassium (Cozaar) 12.5 mg PO DAILY [facility] Last Admin: 10/14/19 11:40 Dose: Not Given Ondansetron HCl (Zofran Odt) 4 mg PO Q6H PRN PRN Reason: Nausea able to take PO Ondansetron HCl (Zofran) 4 mg IV Q4H PRN PRN Reason: Nausea/Vomiting Oxycodone HCl (Oxycodone) 5 mg PO Q4H PRN PRN Reason: Pain (moderate 4-6) Pantoprazole Sodium (Protonix) 40 mg PO BEDTIME [facility] Tamsulosin HCl (Flomax) 0.4 mg PO DAILY [facility] Discontinued Medications Sodium Chloride (Normal Saline) 1,000 mls @ 999 mls/hr IV ASDIRECTED [facility] Last Admin: 10/13/19 20:46 Dose: 999 mls/hr Sodium Chloride (Normal Saline) 1,000 mls @ 125 mls/hr IV ASDIRECTED [facility] Last Admin: 10/13/19 23:53 Dose: 125 mls/hr Azithromycin 500 mg/ Sodium (Chloride) 250 mls @ 250 mls/hr IV Q24H [facility] Last Admin: 10/14/19 01:07 Dose: 250 mls/hr Ceftriaxone Sodium 1 gm/ (Sodium Chloride) 50 mls @ 100 mls/hr IV Q24H [facility] Last Admin: 10/14/19 00:31 Dose: 100 mls/hr Sodium Chloride (Normal Saline) 500 mls @ 250 mls/hr IV BOLUS ONE Stop: 10/14/19 06:38 Last Admin: 10/14/19 04:51 Dose: 250 mls/hr Azithromycin 500 mg/ Sodium (Chloride) 250 mls @ 250 mls/hr IV Q24H [facility] Ceftriaxone Sodium 1 gm/ (Sodium Chloride) 50 mls @ 100 mls/hr IV Q24H [facility] Metoprolol Tartrate (Lopressor) 12.5 mg PO Q6H [facility] Last Admin: 10/14/19 01:02 Dose: 12.5 mg Metoprolol Tartrate (Lopressor) 12.5 mg PO Q6H [facility] Ondansetron HCl (Zofran) 4 mg IVPUSH ONETIME ONE Stop: 10/13/19 20:37 Last Admin: 10/13/19 20:46 Dose: 4 mg Pantoprazole Sodium (Protonix Iv) 40 mg IV BEDTIME [facility] Last Admin: 10/14/19 00:38 Dose: 40 mg - Exam Quality Assessment: DVT Prophylaxis General: Alert, Oriented, Cooperative, Mild Distress Lungs: Clear to Auscultation, Normal Respiratory Effort Cardiovascular: Regular Rate, Regular Rhythm, Murmurs GI/Abdominal Exam: Soft, Non-Tender, No Organomegaly, No Distention Extremities: Non-Tender, No Pedal Edema Sepsis Event Note - Evaluation Sepsis Screening Result: No Definite Risk - Focused Exam Vital Signs: Vital Signs Temp Pulse Resp BP BP Pulse Ox 10/14/19 11:29 92/45 L 10/14/19 10:44 96.9 F 69 16 86/34 L 97 10/14/19 09:20 97/49 L 10/14/19 08:53 93 L 10/14/19 07:44 96.2 F L 58 L 16 80/50 L 95 10/14/19 04:00 98.5 F 57 L 18 80/44 L 87/37 L 95 10/14/19 01:27 94 L Date Exam was Performed: 10/14/19 Time Exam was Performed: 13:17 - Problem List Review Problem List Initiated/Reviewed/Updated: Yes - My Orders Last 24 Hours: My Active Orders 10/14/19 13:07 Convert IV to Saline Lock [OM.PC] Routine 10/14/19 13:15 PROCALCITONIN [CHEM] Stat 10/14/19 13:30 Lactobacillus Rhamnosus GG [Culturelle] 1 cap PO BID 10/14/19 21:00 Pantoprazole [ProTONIX] 40 mg PO BEDTIME - Plan Plan:: ASSESSMENT AND PLAN OF CARE Dehydration with nausea, vomiting and diarrhea-of short duration prior to admission, ALT -Saline lock IV -Medication for nausea and vomiting -Protonix 40 mg p.o. at at bedtime Respiratory illness-viral upper respiratory tract infection of 3 days duration -Continue IV azithromycin and ceftriaxone -Nebulizer treatment Albuterol and Duo nebs ordered -blood cultures x 2 pending Paroxysmal atrial fibrillation- telemetry show SR with intermittent A-Fib. heart rate from 120's to 40's. Frequency decreased since last night but continues to have occasional episodes. Known history of decreased systolic left ventricular function as well as underlying valvular disease. -Cardiac tele -EKG Hypotension-likely combined effect of medication and illness -Hold metoprolol, ARB, and diuretic today -Continue to closely monitor blood pressure MAINTENANCE ISSUES -DVT Prophylaxis - Levonox 30 mg subcut -GI prophylaxis- Protonix as above -Harding catheter not indicated -Nutrition 2 g sodium diet -consult to Spiritual for daily prayers. CODE STATUS DNR/DNI ADMISSION This patient will be admitted to observation status, expect no more than one night hospital stay for evaluation and management of problems outline above. DISPOSITION anticipate discharge to home after the hospital stay PRIMARY CARE PROVIDER Dr. Bigg Nunes HOSPITALIST Dr. Diaz
[2019-10-14] MEDS: Tamsulosin 0.4 MG **PTOM PO SCH (14:22)
[2019-10-14] MEDS: Folic Acid 1 MG **PTOM PO SCH (14:22)
[2019-10-14] MEDS: Lactobacillus Rhamnosus GG (Probiotic) Cap PO SCH ×2 (15:30→21:04)
[2019-10-14] MEDS ORDERED: cefTRIAXone 1 GM in Sodium Chloride 0.9% 50 ML IV SCH (21:00)
[2019-10-14] MEDS: Pantoprazole 40 MG Tab.CR PO SCH (21:05)
[2019-10-14] MEDS: cefTRIAXone 1 GM in Sodium Chloride 0.9% 50 ML IV SCH (21:05)
[2019-10-14] MEDS: atorvaSTATin 10 MG **PTOM PO SCH (21:05)
[2019-10-14] MEDS ORDERED: Azithromycin 500 MG in Sodium Chloride 0.9% 250 ML IV SCH ×4 (22:00)
[2019-10-15] MEDS: Folic Acid 1 MG **PTOM PO SCH (09:16)
[2019-10-15] MEDS: Tamsulosin 0.4 MG **PTOM PO SCH (09:16)
[2019-10-15] MEDS: Lactobacillus Rhamnosus GG (Probiotic) Cap PO SCH ×2 (09:18→20:45)
[2019-10-15] MEDS: Losartan 25 MG **PTOM PO SCH (10:12)
[2019-10-15] MEDS: Furosemide 20 MG **PTOM PO SCH (10:12)
[2019-10-15] MEDS ORDERED: Enoxaparin 40 MG/0.4 ML Syringe SUBCUT SCH (12:00)
--- NOTE | 2019-10-15 14:29 | PCM.PN ---
- General Info Date of Service: 10/15/19 Subjective Update: Rev. Cook is felt improved since yesterday, no further nausea, vomiting, or diarrhea. He has been ambulating in the hallways and remains somewhat weak and slightly unsteady. Blood pressure has improved and he has remained afebrile. Continues to have symptoms of upper respiratory tract infection with cough and nasal congestion. Procalcitonin level was obtained yesterday and was found to be significantly elevated, so he has been kept on antibiotic therapy. There has been no recurrence of atrial fibrillation in the last 24 hours. Functional Status: Reports: Tolerating Diet, Ambulating, Urinating - Review of Systems General: Reports: Weakness. Denies: Fever, Chills Pulmonary: Reports: Cough. Denies: Shortness of Breath, Hemoptysis, Wheezing Cardiovascular: Reports: No Symptoms Gastrointestinal: Reports: No Symptoms - Patient Data Vitals - Most Recent: Last Vital Signs Temp 96.9 F 10/15/19 11:08 Pulse 52 L 10/15/19 11:08 Resp 16 10/15/19 11:08 BP 122/62 10/15/19 11:08 Pulse Ox 92 L 10/15/19 14:02 Weight - Most Recent: 180 lb 6.398 oz I&O - Last 24 Hours: Intake & Output 10/14/19 10/15/19 10/15/19 22:59 06:59 14:59 Intake Total 880 Output Total 750 300 420 Balance 130 -300 -420 Med Orders - Current: Current Medications Acetaminophen (Tylenol) 650 mg PO Q4H PRN PRN Reason: Pain (Mild 1-3)/fever Last Admin: 10/14/19 01:02 Dose: 650 mg Albuterol (Proventil Neb Soln) 2.5 mg NEB Q4H PRN PRN Reason: Shortness Of Breath/wheezing Albuterol/Ipratropium (Duoneb 3.0-0.5 Mg/3 Ml) 3 ml NEB QID PRN PRN Reason: Shortness Of Breath/wheezing Atorvastatin Calcium (Lipitor) 5 mg PO BEDTIME [facility] Last Admin: 10/14/19 21:05 Dose: 5 mg Docusate Sodium (Colace) 100 mg PO BID PRN PRN Reason: Constipation Doxycycline Hyclate (Vibramycin) 100 mg PO BID [facility] Enoxaparin Sodium (Lovenox) 40 mg SUBCUT Q24H [facility] Last Admin: 10/15/19 11:52 Dose: 40 mg Folic Acid (Folic Acid) 1 mg PO DAILY [facility] Last Admin: 10/15/19 09:16 Dose: 1 mg Furosemide (Lasix) 20 mg PO DAILY [facility] Last Admin: 10/15/19 10:12 Dose: Not Given Ceftriaxone Sodium 1 gm/ (Sodium Chloride) 50 mls @ 100 mls/hr IV Q24H [facility] Last Admin: 10/14/19 21:05 Dose: 100 mls/hr Lactobacillus Rhamnosus (Culturelle) 1 cap PO BID [facility] Last Admin: 10/15/19 09:18 Dose: 1 cap Losartan Potassium (Cozaar) 12.5 mg PO DAILY [facility] Last Admin: 10/15/19 10:12 Dose: Not Given Ondansetron HCl (Zofran Odt) 4 mg PO Q6H PRN PRN Reason: Nausea able to take PO Last Admin: 10/14/19 23:09 Dose: 4 mg Ondansetron HCl (Zofran) 4 mg IV Q4H PRN PRN Reason: Nausea/Vomiting Oxycodone HCl (Oxycodone) 5 mg PO Q4H PRN PRN Reason: Pain (moderate 4-6) Pantoprazole Sodium (Protonix) 40 mg PO BEDTIME [facility] Last Admin: 10/14/19 21:05 Dose: 40 mg Tamsulosin HCl (Flomax) 0.4 mg PO DAILY [facility] Last Admin: 10/15/19 09:16 Dose: 0.4 mg Discontinued Medications Enoxaparin Sodium (Lovenox) 40 mg SUBCUT DAILY [facility] Last Admin: 10/14/19 14:22 Dose: 40 mg Sodium Chloride (Normal Saline) 1,000 mls @ 999 mls/hr IV ASDIRECTED [facility] Last Admin: 10/13/19 20:46 Dose: 999 mls/hr Sodium Chloride (Normal Saline) 1,000 mls @ 125 mls/hr IV ASDIRECTED [facility] Last Admin: 10/13/19 23:53 Dose: 125 mls/hr Azithromycin 500 mg/ Sodium (Chloride) 250 mls @ 250 mls/hr IV Q24H [facility] Last Admin: 10/14/19 01:07 Dose: 250 mls/hr Ceftriaxone Sodium 1 gm/ (Sodium Chloride) 50 mls @ 100 mls/hr IV Q24H [facility] Last Admin: 10/14/19 00:31 Dose: 100 mls/hr Sodium Chloride (Normal Saline) 500 mls @ 250 mls/hr IV BOLUS ONE Stop: 10/14/19 06:38 Last Admin: 10/14/19 04:51 Dose: 250 mls/hr Azithromycin 500 mg/ Sodium (Chloride) 250 mls @ 250 mls/hr IV Q24H [facility] Ceftriaxone Sodium 1 gm/ (Sodium Chloride) 50 mls @ 100 mls/hr IV Q24H [facility] Azithromycin 500 mg/ Sodium (Chloride) 250 mls @ 250 mls/hr IV Q24H [facility] Last Admin: 10/14/19 21:55 Dose: 250 mls/hr Metoprolol Tartrate (Lopressor) 12.5 mg PO Q6H [facility] Last Admin: 10/14/19 01:02 Dose: 12.5 mg Metoprolol Tartrate (Lopressor) 12.5 mg PO Q6H [facility] Last Admin: 10/14/19 14:10 Dose: Not Given Ondansetron HCl (Zofran) 4 mg IVPUSH ONETIME ONE Stop: 10/13/19 20:37 Last Admin: 10/13/19 20:46 Dose: 4 mg Pantoprazole Sodium (Protonix Iv) 40 mg IV BEDTIME [facility] Last Admin: 10/14/19 00:38 Dose: 40 mg - Exam Quality Assessment: DVT Prophylaxis General: Alert, Oriented, Cooperative, Mild Distress Lungs: Clear to Auscultation, Normal Respiratory Effort Cardiovascular: Regular Rate, Regular Rhythm, No Murmurs GI/Abdominal Exam: Soft, Non-Tender, No Organomegaly, No Distention Extremities: Non-Tender, No Pedal Edema Sepsis Event Note - Evaluation Sepsis Screening Result: No Definite Risk - Focused Exam Vital Signs: Vital Signs Temp Pulse Resp BP Pulse Ox 10/15/19 14:02 92 L 10/15/19 11:08 96.9 F 52 L 16 122/62 96 10/15/19 07:23 98.8 F 57 L 16 125/57 L 96 10/15/19 07:15 97 10/15/19 03:00 98.2 F 60 16 109/52 L 94 L Date Exam was Performed: 10/15/19 Time Exam was Performed: 14:25 - Problem List Review Problem List Initiated/Reviewed/Updated: Yes - My Orders Last 24 Hours: My Active Orders 10/14/19 13:30 Lactobacillus Rhamnosus GG [Culturelle] 1 cap PO BID 10/14/19 21:00 Pantoprazole [ProTONIX] 40 mg PO BEDTIME cefTRIAXone [Rocephin] 1 gm Sodium Chloride 0.9% [Normal Saline] 50 ml IV Q24H 10/15/19 21:00 Doxycycline [Vibramycin] 100 mg PO BID - Plan Plan:: ASSESSMENT AND PLAN OF CARE Dehydration with nausea, vomiting and diarrhea-resolved -Saline lock IV -Protonix 40 mg p.o. at at bedtime Respiratory illness-viral upper respiratory tract infection of 3 days duration -Continue IV ceftriaxone -Discontinue azithromycin -Doxycycline 100 mg p.o. twice daily, start today for transition to home tomorrow -Nebulizer treatment Albuterol and Duo nebs ordered -blood cultures x 2 pending Paroxysmal atrial fibrillation-no recurrent atrial fibrillation over the last 24 hours -Cardiac tele Hypotension-resolved -Hold metoprolol, ARB, and diuretic today -Continue to closely monitor blood pressure MAINTENANCE ISSUES -DVT Prophylaxis - Levonox 30 mg subcut -GI prophylaxis- Protonix as above -Harding catheter not indicated -Nutrition 2 g sodium diet -consult to Spiritual for daily prayers. CODE STATUS DNR/DNI ADMISSION This patient will be admitted to observation status, expect no more than one night hospital stay for evaluation and management of problems outline above. DISPOSITION anticipate discharge to home after the hospital stay PRIMARY CARE PROVIDER Dr. Bigg Nunes HOSPITALIST Dr. Diaz
[2019-10-15] MEDS: atorvaSTATin 10 MG **PTOM PO SCH (20:45)
[2019-10-15] MEDS: Doxycycline 100 MG Cap PO SCH (20:45)
[2019-10-15] MEDS: Pantoprazole 40 MG Tab.CR PO SCH (20:45)
[2019-10-15] MEDS: cefTRIAXone 1 GM in Sodium Chloride 0.9% 50 ML IV SCH (20:46)
[2019-10-16] MEDS: Tamsulosin 0.4 MG **PTOM PO SCH (08:24)
[2019-10-16] MEDS: Losartan 25 MG **PTOM PO SCH (08:24)
[2019-10-16] MEDS: Furosemide 20 MG **PTOM PO SCH (08:24)
[2019-10-16] MEDS: Folic Acid 1 MG **PTOM PO SCH (08:25)
[2019-10-16] MEDS: Doxycycline 100 MG Cap PO SCH (08:25)
[2019-10-16] MEDS: Lactobacillus Rhamnosus GG (Probiotic) Cap PO SCH (08:25)
[2019-10-16 10:33] VITALS: BP 134/70; PULSE 70
--- NOTE | 2019-10-16 10:35 | PCM.DCSUM1 ---
Discharge Summary - Hospital Course Brief History: Rev. Cook is an 89-year-old gentleman who was admitted to observation status through the emergency department with a recent history of cough and abrupt onset of nausea vomiting and diarrhea. - Discharge Data Discharge Date: 10/16/19 Discharge Disposition: Home, Self-Care 01 Condition: Stable - Referral to Home Health Primary Care Physician: Bob Nunes MD - Discharge Diagnosis/Problem(s) (1) Paroxysmal atrial fibrillation with rapid ventricular response SNOMED Code(s): 559123498, 992080686059595 ICD Code: I48.0 - PAROXYSMAL ATRIAL FIBRILLATION Status: Acute Current Visit: Yes (2) Viral gastroenteritis SNOMED Code(s): 581079033 ICD Code: A08.4 - VIRAL INTESTINAL INFECTION, UNSPECIFIED Status: Acute Current Visit: Yes (3) Upper respiratory infection SNOMED Code(s): 73584388 ICD Code: J06.9 - ACUTE UPPER RESPIRATORY INFECTION, UNSPECIFIED Status: Acute Priority: High Current Visit: Yes Qualifiers: Airway obstruction: without obstruction - Patient Summary/Data Consults: Consultations 10/13/19 23:36 Consult to Spiritual Care [CONS] Routine Hospital Course: Rev. Cook is an 89-year-old gentleman who was admitted to observation status with nausea vomiting and weakness. He reported not feeling well over the past 2 to 3 days with cough and some shortness of breath. On the day of admission he was seen and evaluated in the clinic and started on Augmentin. He took the Augmentin early afternoon and by 2 hours later developed severe nausea, vomiting , weakness, and diarrhea. He presented to the emergency department. Chest x- ray showed no obvious infiltrates and white blood cell count was found to be within normal range. He was admitted to observation status and given IV fluids for hydration. After hospitalization telemetry monitoring did document paroxysmal atrial fibrillation. He was given low-dose beta-mecca therapy and the frequency of atrial fibrillation decreased. The morning after admission he had hypotension but denieed significant symptoms of weakness or lightheadedness. Nausea vomiting and diarrhea resolved and he was able to tolerate a regular diet. Recent cardiology records were reviewed, left ventricular systolic function was noted to be within normal range and he was found to have moderate aortic insufficiency and mild mitral regurgitation. ARB and diuretic therapy were held during hospitalization and blood pressure stabilized. He remained on cardiac monitoring and had no further episodes of atrial fibrillation for 48 hours prior to discharge. He was treated with IV antibiotic therapy for possible bacterial respiratory tract infection, pro calcitonin level was obtained and noted to be significantly elevated consistent with bacterial infection. He will resume usual medical therapy with his therapy and diuretic. He will be prescribed an additional 4 days of oral antibiotic therapy with doxycycline 100 mg twice daily. Activity will be as tolerated and he will remain on a low-sodium diet. Follow-up appointment will be scheduled with his primary care provider within 1 week. Consider 48-hour Holter monitor as an outpatient to further evaluate for paroxysmal atrial fibrillation. Anticoagulation was discussed during hospitalization but will be held at this time because of the very limited episodes of atrial fibrillation. - Patient Instructions Diet: Low Sodium Activity: As Tolerated Other/Special Instructions: Please schedule follow-up appointment with primary care provider within 1 week. - Discharge Plan *PRESCRIPTION DRUG MONITORING PROGRAM REVIEWED*: Not Applicable *COPY OF PRESCRIPTION DRUG MONITORING REPORT IN PATIENT WIL: Not Applicable Prescriptions/Med Rec: Doxycycline [Vibramycin] 100 mg PO BID #8 cap Lactobacillus Rhamnosus GG [Culturelle] 1 cap PO BID #60 cap Home Medications: Home Meds Aspirin [Halfprin] 81 mg PO ASDIRECTED 07/08/13 [History] Halobetasol [Ultravate] 1 applicful TOP ASDIRECTED PRN 07/08/13 [History] Multivitamin with Minerals [Multiple Vitamin] 1 tab PO DAILY 07/08/13 [History] Tamsulosin [Flomax] 0.4 mg PO DAILY 07/08/13 [History] Calcipotriene [Dovonex 0.005% Crm] 1 applicful TOP BID 04/17/14 [History] Glucosamine/Chondr Graham A Sod [Osteo Bi-Flex Caplet] 2 tab PO DAILY 04/18/14 [ History] Folic Acid 1 mg PO DAILY 10/13/19 [History] Furosemide 20 mg PO DAILY 10/13/19 [History] Losartan Potassium 12.5 mg PO DAILY 10/13/19 [History] Methotrexate Sodium [Methotrexate] 2.5 mg PO WEEKLY 10/13/19 [History] atorvaSTATin [Lipitor] 5 mg PO BEDTIME 10/13/19 [History] Doxycycline [Vibramycin] 100 mg PO BID #8 cap 10/16/19 [Rx] Lactobacillus Rhamnosus GG [Culturelle] 1 cap PO BID #60 cap 03/08/20 [Rx] Referrals: Bob Nunes MD [Primary Care Provider] - 10/19/19 10:30 am ([facility]) - Discharge Summary/Plan Comment DC Time >30 min.: No - Patient Data Vitals - Most Recent: Last Vital Signs Temp 97.8 F 10/16/19 07:00 Pulse 60 10/16/19 07:00 Resp 18 10/16/19 07:00 BP 125/59 L 10/16/19 07:00 Pulse Ox 92 L 10/16/19 07:00 Weight - Most Recent: 180 lb 6.398 oz I&O - Last 24 hours: Intake & Output 10/15/19 10/16/19 10/16/19 21:59 06:59 14:59 Intake Total Output Total 300 Balance -300 Med Orders - Current: Current Medications Acetaminophen (Tylenol) 650 mg PO Q4H PRN PRN Reason: Pain (Mild 1-3)/fever Last Admin: 10/14/19 01:02 Dose: 650 mg Albuterol (Proventil Neb Soln) 2.5 mg NEB Q4H PRN PRN Reason: Shortness Of Breath/wheezing Albuterol/Ipratropium (Duoneb 3.0-0.5 Mg/3 Ml) 3 ml NEB QID PRN PRN Reason: Shortness Of Breath/wheezing Atorvastatin Calcium (Lipitor) 5 mg PO BEDTIME [facility] Last Admin: 10/15/19 20:45 Dose: 5 mg Docusate Sodium (Colace) 100 mg PO BID PRN PRN Reason: Constipation Doxycycline Hyclate (Vibramycin) 100 mg PO BID [facility] Last Admin: 10/16/19 08:25 Dose: 100 mg Enoxaparin Sodium (Lovenox) 40 mg SUBCUT Q24H [facility] Last Admin: 10/15/19 11:52 Dose: 40 mg Folic Acid (Folic Acid) 1 mg PO DAILY [facility] Last Admin: 10/16/19 08:25 Dose: 1 mg Furosemide (Lasix) 20 mg PO DAILY [facility] Last Admin: 10/16/19 08:24 Dose: Not Given Ceftriaxone Sodium 1 gm/ (Sodium Chloride) 50 mls @ 100 mls/hr IV Q24H [facility] Last Admin: 10/15/19 20:46 Dose: 100 mls/hr Lactobacillus Rhamnosus (Culturelle) 1 cap PO BID [facility] Last Admin: 10/16/19 08:25 Dose: 1 cap Losartan Potassium (Cozaar) 12.5 mg PO DAILY [facility] Last Admin: 10/16/19 08:24 Dose: Not Given Ondansetron HCl (Zofran Odt) 4 mg PO Q6H PRN PRN Reason: Nausea able to take PO Last Admin: 10/14/19 23:09 Dose: 4 mg Ondansetron HCl (Zofran) 4 mg IV Q4H PRN PRN Reason: Nausea/Vomiting Oxycodone HCl (Oxycodone) 5 mg PO Q4H PRN PRN Reason: Pain (moderate 4-6) Pantoprazole Sodium (Protonix) 40 mg PO BEDTIME [facility] Last Admin: 10/15/19 20:45 Dose: 40 mg Tamsulosin HCl (Flomax) 0.4 mg PO DAILY [facility] Last Admin: 10/16/19 08:24 Dose: 0.4 mg Discontinued Medications Enoxaparin Sodium (Lovenox) 40 mg SUBCUT DAILY [facility] Last Admin: 10/14/19 14:22 Dose: 40 mg Sodium Chloride (Normal Saline) 1,000 mls @ 999 mls/hr IV ASDIRECTED [facility] Last Admin: 10/13/19 20:46 Dose: 999 mls/hr Sodium Chloride (Normal Saline) 1,000 mls @ 125 mls/hr IV ASDIRECTED [facility] Last Admin: 10/13/19 23:53 Dose: 125 mls/hr Azithromycin 500 mg/ Sodium (Chloride) 250 mls @ 250 mls/hr IV Q24H [facility] Last Admin: 10/14/19 01:07 Dose: 250 mls/hr Ceftriaxone Sodium 1 gm/ (Sodium Chloride) 50 mls @ 100 mls/hr IV Q24H [facility] Last Admin: 10/14/19 00:31 Dose: 100 mls/hr Sodium Chloride (Normal Saline) 500 mls @ 250 mls/hr IV BOLUS ONE Stop: 10/14/19 06:38 Last Admin: 10/14/19 04:51 Dose: 250 mls/hr Azithromycin 500 mg/ Sodium (Chloride) 250 mls @ 250 mls/hr IV Q24H [facility] Ceftriaxone Sodium 1 gm/ (Sodium Chloride) 50 mls @ 100 mls/hr IV Q24H [facility] Azithromycin 500 mg/ Sodium (Chloride) 250 mls @ 250 mls/hr IV Q24H [facility] Last Admin: 10/14/19 21:55 Dose: 250 mls/hr Metoprolol Tartrate (Lopressor) 12.5 mg PO Q6H [facility] Last Admin: 10/14/19 01:02 Dose: 12.5 mg Metoprolol Tartrate (Lopressor) 12.5 mg PO Q6H [facility] Last Admin: 10/14/19 14:10 Dose: Not Given Ondansetron HCl (Zofran) 4 mg IVPUSH ONETIME ONE Stop: 10/13/19 20:37 Last Admin: 10/13/19 20:46 Dose: 4 mg Pantoprazole Sodium (Protonix Iv) 40 mg IV BEDTIME [facility] Last Admin: 10/14/19 00:38 Dose: 40 mg - Exam Quality Assessment: Reports: DVT Prophylaxis General: Reports: Alert, Oriented, Cooperative, No Acute Distress Lungs: Reports: Clear to Auscultation, Normal Respiratory Effort Cardiovascular: Reports: Regular Rate, Regular Rhythm, Murmurs GI/Abdominal Exam: Soft, Non-Tender, No Organomegaly, No Distention Extremities: Non-Tender, No Pedal Edema
== END 2019-10-16 11:35 | disposition home or self-care (01) ==
LOC: JP.ED 19:28 → JP.MS 23:12
PROVIDERS: ADMIT Hospitalist; ATTEND Hospitalist
DX: A08.4 Viral intestinal infection, unspecified (principal); I48.0 Paroxysmal atrial fibrillation; E86.0 Dehydration; J06.9 Acute upper respiratory infection, unspecified; I95.9 Hypotension, unspecified; I08.0 Rheumatic disorders of both mitral and aortic valves; E78.5 Hyperlipidemia, unspecified; Z79.899 Other long term (current) drug therapy; Z87.891 Personal history of nicotine dependence; Z66 Do not resuscitate; Z79.82 Long term (current) use of aspirin
CPT/HCPCS: 36415; 71045; 80048; 80053; 81001; 82150; 83605; 83735; 84145; 84484; 85025; 87804; 93005; 94762; 96361; 96365; 96366; 96367; 96372; 96375; 96376; 99217; 99218; 99225; 99285; A9270; C9113; G0378; J0456; J0696; J1650; J2405; J7030; J7040; J7050; 96374

== ENCOUNTER 2020-08-12 09:06 | Emergency (ER) | payer MEDICARE ==
--- NOTE | 2020-08-12 10:12 | EDM.PDOC ---
ED HPI GENERAL MEDICAL PROBLEM - General Chief Complaint: General Stated Complaint: WEAKNESS Time Seen by Provider: 08/12/20 09:55 Source of Information: Reports: Patient, Family History Limitations: Reports: No Limitations - History of Present Illness INITIAL COMMENTS - FREE TEXT/NARRATIVE: 89-year-old male who still lives independently and is scheduled to move into [facility] in the near future has had 2 to 3 days of increasing weakness without any other significant symptoms. He had a mild headache last evening. The weakness is generalized, not asymmetric. No fevers or chills, shortness of breath, cough, abdominal pain, nausea vomiting or diarrhea. He did have some urinary incontinence and has a history of UTIs. Onset: Gradual Duration: Day(s): (2 to 3 days of symptoms) Headache Pain Score (Numeric/FACES): 6 - Related Data Allergies Allergy/AdvReac Type Severity Reaction Status Date / Time No Known Allergies Allergy Verified 08/12/20 09:41 Home Meds: Home Meds Multivitamin with Minerals [Multiple Vitamin] 1 tab PO DAILY 07/08/13 [History] Tamsulosin [Flomax] 0.4 mg PO DAILY 07/08/13 [History] Glucosamine/Chondr Graham A Sod [Osteo Bi-Flex Caplet] 2 tab PO DAILY 04/18/14 [History] Folic Acid 1 mg PO DAILY 10/13/19 [History] Furosemide 20 mg PO DAILY 10/13/19 [History] Losartan Potassium 25 mg PO BEDTIME 10/13/19 [History] atorvaSTATin [Lipitor] 5 mg PO DAILY 10/13/19 [History] metHOTREXate sodium [Methotrexate] 6 tab PO WEEKLY 10/13/19 [History] Lactobacillus Rhamnosus GG [Culturelle] 1 cap PO DAILY 12/29/19 [History] Warfarin [Coumadin] 5 mg PO ASDIRECTED 12/29/19 [History] Metoprolol Succinate [Toprol XL] 25 mg PO DAILY 08/12/20 [History] Past Medical History HEENT History: Reports: Cataract, Impaired Vision Cardiovascular History: Reports: Afib, Other (See Below) Other Cardiovascular History: dyslipidemia; valve issue Respiratory History: Reports: Pneumonia, Recurrent, Sleep Apnea Gastrointestinal History: Reports: Colon Polyp, Pancreatitis, Other (See Below) Other Gastrointestinal History: non-alcoholic pancreatitis Musculoskeletal History: Reports: Arthritis, Back Pain, Chronic Dermatologic History: Reports: Psoriasis - Infectious Disease History Infectious Disease History: Reports: Chicken Pox, Measles, Mumps - Past Surgical History HEENT Surgical History: Reports: Adenoidectomy, Cataract Surgery, Tonsillectomy GI Surgical History: Reports: Colonoscopy, Hernia, Inguinal Social & Family History - Tobacco Use Tobacco Use Status *Q: Never Tobacco User - Caffeine Use Caffeine Use: Reports: Coffee Caffeine Use Comment: 3-4 cups of coffee per days - Recreational Drug Use Recreational Drug Use: No - Living Situation & Occupation Living situation: Reports: , Alone Occupation: Retired (lives in apartment in [place], [place]. He is independent, drives himself and is control of his life. He has two Daughters that live in [facility] who keep close watch on Jovan.) ED ROS GENERAL - Review of Systems Review Of Systems: See Below Constitutional: Reports: Malaise. Denies: Fever, Chills HEENT: Denies: Throat Pain, Vision Change Respiratory: Denies: Shortness of Breath, Wheezing Cardiovascular: Denies: Lightheadedness, Palpitations GI/Abdominal: Denies: Abdominal Pain, Diarrhea, Nausea, Vomiting : Reports: Incontinence, Urgency Skin: Reports: No Symptoms Neurological: Reports: Headache Psychiatric: Reports: No Symptoms ED EXAM, GENERAL - Physical Exam Exam: See Below Exam Limited By: No Limitations General Appearance: Alert, No Apparent Distress Eye Exam: Bilateral Eye: Normal Inspection Head: Atraumatic Neck: Non-Tender Respiratory/Chest: Lungs Clear Cardiovascular: Regular Rate, Rhythm. No: Tachycardia GI/Abdominal: Soft, Non-Tender Extremities: No Pedal Edema Neurological: Alert, Oriented, No Motor/Sensory Deficits Psychiatric: Normal Affect, Normal Mood Skin Exam: Warm, Dry Course - Vital Signs Last Recorded V/S: Last Vital Signs Temp 97.7 F 08/12/20 09:40 Pulse 66 08/12/20 12:31 Resp 14 08/12/20 12:31 BP 161/53 H 08/12/20 12:31 Pulse Ox 95 08/12/20 12:31 - Orders/Labs/Meds Labs: Laboratory Tests 08/12/20 08/12/20 08/12/20 Range/Units 10:12 10:12 10:12 WBC 6.5 (4.5-11.0) K/uL RBC 3.58 L (4.30-5.90) M/uL Hgb 11.6 L (12.0-15.0) g/dL Hct 35.9 L (40.0-54.0) % MCV 100 H (80-98) fL MCH 32 H (27-31) pg MCHC 32 (32-36) % Plt Count 188 (150-400) K/uL Neut % (Auto) 84 H (36-66) % Lymph % (Auto) 11 L (24-44) % [place] % (Auto) 5 (2-6) % Eos % (Auto) 1 L (2-4) % Baso % (Auto) 0 (0-1) % Sodium 138 L (140-148) mmol/L Potassium 4.1 (3.6-5.2) mmol/L Chloride 105 (100-108) mmol/L Carbon Dioxide 26 (21-32) mmol/L Anion Gap 11.1 (5.0-14.0) mmol/L BUN 25 H (7-18) mg/dL Creatinine 0.9 (0.8-1.3) mg/dL Est Cr Clr Drug Dosing 52.02 mL/min Estimated GFR (MDRD) > 60 (>60) Glucose 125 H (74-106) mg/dL Lactic Acid 0.9 (0.4-2.0) mmol/L Calcium 8.6 (8.5-10.1) mg/dL Total Bilirubin 0.8 (0.2-1.0) mg/dL AST 21 (15-37) U/L ALT 40 D (12-78) U/L Alkaline Phosphatase 36 L (46-116) U/L C-Reactive Protein 0.79 H (0.0-0.3) mg/dL Total Protein 6.2 L (6.4-8.2) g/dL Albumin 3.4 (3.4-5.0) g/dL Globulin 2.8 (2.3-3.5) g/dL Albumin/Globulin Ratio 1.2 (1.2-2.2) Urine Color (YELLOW) Urine Appearance (CLEAR) Urine pH (5.0-8.0) Ur Specific [place] (1.008-1.030) Urine Protein (NEGATIVE) mg/dL Urine Glucose (UA) (NEGATIVE) mg/dL Urine Ketones (NEGATIVE) mg/dL Urine Occult Blood (NEGATIVE) Urine Nitrite (NEGATIVE) Urine Bilirubin (NEGATIVE) Urine Urobilinogen (0.2-1.0) EU/dL Ur Leukocyte Esterase (NEGATIVE) Urine RBC (0-5) Urine WBC (0-5) Ur Epithelial Cells Amorphous Sediment Urine Bacteria Urine Mucus Influenza Type A RNA (NEGATIVE) Influenza Type B RNA (NEGATIVE) RSV Rapid (NEGATIVE) SARS-CoV-2 RNA (SHANTELL) (NEGATIVE) 08/12/20 08/12/20 Range/Units 10:12 11:00 WBC (4.5-11.0) K/uL RBC (4.30-5.90) M/uL Hgb (12.0-15.0) g/dL Hct (40.0-54.0) % MCV (80-98) fL MCH (27-31) pg MCHC (32-36) % Plt Count (150-400) K/uL Neut % (Auto) (36-66) % Lymph % (Auto) (24-44) % [place] % (Auto) (2-6) % Eos % (Auto) (2-4) % Baso % (Auto) (0-1) % Sodium (140-148) mmol/L Potassium (3.6-5.2) mmol/L Chloride (100-108) mmol/L Carbon Dioxide (21-32) mmol/L Anion Gap (5.0-14.0) mmol/L BUN (7-18) mg/dL Creatinine (0.8-1.3) mg/dL Est Cr Clr Drug Dosing mL/min Estimated GFR (MDRD) (>60) Glucose (74-106) mg/dL Lactic Acid (0.4-2.0) mmol/L Calcium (8.5-10.1) mg/dL Total Bilirubin (0.2-1.0) mg/dL AST (15-37) U/L ALT (12-78) U/L Alkaline Phosphatase (46-116) U/L C-Reactive Protein (0.0-0.3) mg/dL Total Protein (6.4-8.2) g/dL Albumin (3.4-5.0) g/dL Globulin (2.3-3.5) g/dL Albumin/Globulin Ratio (1.2-2.2) Urine Color Yellow (YELLOW) Urine Appearance Clear (CLEAR) Urine pH 7.0 (5.0-8.0) Ur Specific [place] 1.025 (1.008-1.030) Urine Protein 30 H (NEGATIVE) mg/dL Urine Glucose (UA) Negative (NEGATIVE) mg/dL Urine Ketones Negative (NEGATIVE) mg/dL Urine Occult Blood Small H (NEGATIVE) Urine Nitrite Negative (NEGATIVE) Urine Bilirubin Negative (NEGATIVE) Urine Urobilinogen 0.2 (0.2-1.0) EU/dL Ur Leukocyte Esterase Negative (NEGATIVE) Urine RBC 0-5 (0-5) Urine WBC Not seen (0-5) Ur Epithelial Cells Rare Amorphous Sediment Not seen Urine Bacteria Not seen Urine Mucus Not seen Influenza Type A RNA Negative (NEGATIVE) Influenza Type B RNA Negative (NEGATIVE) RSV Rapid Negative (NEGATIVE) SARS-CoV-2 RNA (SHANTELL) Negative (NEGATIVE) Meds: Medications Discontinued Medications Generic Name Dose Route Start Last Admin Trade Name Freq PRN Reason Stop Dose Admin Levetiracetam 500 mg/ Sodium 105 mls @ 400 mls/hr 08/12/20 12:44 08/12/20 12:50 Chloride IV 08/12/20 12:58 400 mls/hr ONETIME ONE Administration - Re-Assessments/Exams Free Text/Narrative Re-Assessment/Exam: 08/12/20 10:39 Patient has generalized weakness, no asymmetries found at this time. CBC, CMP, 4 Plex viral screen was obtained as well as a UA. 08/12/20 12:05 CBC CMP and forward flex viral screen were all reassuring, UA was negative. Patient however asked for some Tylenol for headache which is unusual for him, so a CT of the head was obtained without contrast. This was abnormal with the following results IMPRESSION: 1. Large bilateral acute on chronic subdural hematomas with resultant asymmetric mass effect and mild left to right midline shift. 2. Mild cerebral atrophy. 3. Mild supratentorial white matter changes that are non-specific, but statistically most likely related to chronic small vessel ischemic disease. 4. Results were discussed with ordering doctor at 1150 hours. Neurosurgery in [place] was consulted and are reviewing the films and will call back with recommendations, transfer to [place] is anticipated. 08/12/20 12:46 Dr. Berman, neurosurgeon from [facility] kindly accepted the patient in transfer. 500 mg of Keppra IV was recommended which was given. No coagulation reversal agents were recommended at this time. 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 Berman accepting physician for acute on chronic subdural hematoma Sepsis Event Note (ED) - Evaluation Sepsis Screening Result: No Definite Risk - Focused Exam Vital Signs: Vital Signs Temp Pulse Resp BP Pulse Ox 08/12/20 12:31 66 14 161/53 H 95 08/12/20 11:39 72 16 158/69 H 93 L 08/12/20 10:00 84 147/77 H 94 L 08/12/20 09:40 97.7 F 96 16 154/76 H 93 L 08/12/20 09:31 97.7 F 96 16 154/76 H 93 L
[2020-08-12 10:56] LABS: CORONAVIRUS COVID-19 NAA NEGATIVE (NEGATIVE)
--- NOTE | 2020-08-12 11:54 | CRLCT ---
INDICATION: Headache. Weakness. TECHNIQUE: Noncontrast axial CT of the head is submitted. No comparisons. FINDINGS: Mild cerebral atrophy. There are large acute on chronic bilateral subdural hematomas. The left measures 2.7 centimeters in maximal thickness while the right measures 2.2 centimeters in maximal thickness. There is resultant asymmetric mass effect with approximate 7 millimeters of left to right midline shift. The remainder of the ventricles, sulci and gyri are of normal size, shape and contour for age and degree of atrophy. Mild patchy regions of decreased attenuation within the periventricular and subcortical white matter of both cerebral hemispheres. IMPRESSION: 1. Large bilateral acute on chronic subdural hematomas with resultant asymmetric mass effect and mild left to right midline shift. 2. Mild cerebral atrophy. 3. Mild supratentorial white matter changes that are non-specific, but statistically most likely related to chronic small vessel ischemic disease. 4. Results were discussed with ordering doctor at 1150 hours. Dictated by Daniel Quinonez MD @ 08/12/2020 11:53:21 AM Please note that all CT scans at this facility use dose modulation, iterative reconstruction, and/or weight-based dosing when appropriate to reduce radiation dose to as low as reasonably achievable. Dictated by: Daniel Quinonez MD @ 08/12/2020 11:53:26 (Electronically Signed)
[2020-08-12 12:32] VITALS: BP 161/53; PULSE 66
[2020-08-12] MEDS ORDERED: levETIRAcetam 500 MG in Sodium Chloride 0.9% 100 ML IV ONE (12:44)
== END 2020-08-12 14:24 ==
LOC: JP.ED 09:06
DX: I62.03 Nontraumatic chronic subdural hemorrhage (principal); I48.91 Unspecified atrial fibrillation; E78.5 Hyperlipidemia, unspecified; Z79.01 Long term (current) use of anticoagulants; Z79.899 Other long term (current) drug therapy; Z20.822 Contact with and (suspected) exposure to COVID-19
CPT/HCPCS: 0241U; 36415; 70450; 80053; 81001; 83605; 85025; 86140; 96374; 99285; J1953